=== PATIENT | female | born 1975 | race Caucasian/White ===

== ENCOUNTER 2024-11-04 15:00 | Outpatient (CLI) | payer BC, SELFPAY | END 2024-11-04 15:01 | disposition home or self-care (01) | LOC: NFLDREF 11-13 23:42 | PROVIDERS: Visit Provider Physician Assistant | DX: R30.0 Dysuria (principal); R35.0 Frequency of micturition | CPT/HCPCS: 87086 ==

== ENCOUNTER 2024-11-09 13:56 | Outpatient (CLI) | payer BC, SELFPAY | END 2024-11-09 13:57 | disposition home or self-care (01) | LOC: NFLDREF 11-14 02:07 | DX: N12 Tubulo-interstitial nephritis, not specified as acute or chronic (principal) | CPT/HCPCS: 87086 ==